=== PATIENT | male | born 1940 | race Caucasian/White ===

== ENCOUNTER 2023-05-08 05:17 | Inpatient (IN) | payer MEDICARE, OTHER, SELFPAY ==
[2023-05-08] VITALS (53 sets, daily range): BP systolic 69–137; BP diastolic 29–86; PULSE 2–125; BMI 20.8
--- NOTE | 2023-05-08 02:29 | ED.GENMED ---
History of Present Illness
General
Chief Complaint: Fall
Source: patient and ambulance crew
Exam Limitations: none
Time Seen by Provider: 05/08/23 02:26
Nursing documentation reviewed up to this point in time: agreed with
Travel History
Have you had any contact with someone who has COVID-19?: Unable to Answer
Do you have any symptoms of coronavirus? Fever > 100 degrees, chills, cough, shortness of breath, sore throat, loss of taste or smell, muscle aches, or headache?: Unable to Answer
History of Present Illness
History of Present Illness:
82 yo male presents the emergency department complaining of an unwitnessed fall, and family stating he has a bug. History of dementia. On eliquis.
Past History
Past History
ED Past Medical History: HTN, Hypercholesterolemia and Other (oa)
ED Past Surgical History: Orthopedic and Other (cataracts)
Social History
Tobacco: Non-smoker
Alcohol: None
Drug: None
Living: with family
Review of Systems
Review of Systems
Allergies reviewed?: Yes
All Other Systems: Not applicable
Constitutional: Reports no symptoms
EENT: Reports no symptoms
Respiratory: Reports cough and trouble breathing
Cardiac: Reports no symptoms
ABD/GI: Reports vomiting and diarrhea
: Reports no symptoms
Musculoskeletal: Reports no symptoms
Skin: Reports no symptoms
Neurological: Reports no symptoms
Endocrine: Reports no symptoms
Hematologic/Lymphatic: Reports no symptoms
Psychiatric: Reports no symptoms
Phy Exam
Physical Exam
Physical Exam:
Physical Exam
General: Ill-appearing, moderate distress
Neck: supple. no meningeal signs. normal posterior pharynx
Heart: s1/s2 tachycardia, no murmur. equal radial
pulses.
HEENT: Pupils equal round reactive to light, EOMI
Lungs: Moderate respiratory distress. Rhonchi bilaterally
Abdomen: normal bowel sounds. not tender. no CVAT
Neuro: alert and oriented to person. no focal neurological deficits cranial nerves II through XII intact
Skin: no rash
Psychiatric: Poorly kept. interactive and cooperative
Extremities: no edema. no calf tenderness. negative homans. good distal pulses
Course
Orders/Labs/Results
Orders:
Orders
05/08/23 02:11
Portable Chest Xray [CR Chest Portable - 1 View] Urgent
Comment:
Reason For Exam: sob
Reason Study Needs to be Portable: Patient Unstable
05/08/23 02:12
EKG [Electrocardiogram (*1)] Urgent
Reason for Study: Shortness of Breath
EKG- Treatment ONCE
05/08/23 02:17
Cardiac Monitoring- Treatment ONCE
O2 Therapy [RESP] Urgent
Titrate/Wean O2 to maintain O2 sat greater than (%): 93
Special Instructions: TO MAINTAIN CONTINUOUS O2 SATS > OR = 93%
05/08/23 02:28
CT Head W/o Iv Contrast Urgent
Comment:
Reason For Exam: fall, hit head
05/08/23 02:38
Complete Blood Count/With Diff Urgent
Comprehensive Metabolic Panel Urgent
Creatine Phosphokinase Urgent
Comment: ADD ON
Blood Culture Q30M
GRISELDA Source: Blood/Venous
Specimen Description:
Comment: FROM 2 SEPARATE SITES
Blood Culture Q30M
GRISELDA Source: Blood/Venous
Specimen Description:
Comment: FROM 2 SEPARATE SITES
05/08/23 02:39
Lactic Acid Q4H
Comment: ON ICE, CANCEL 2ND ORDER IF FIRST LACTIC ACID LEVEL <2
05/08/23 02:48
Bipap [RESP] Urgent
Patient to use own unit?: No
Inspiratory Pressure (cm H2O): 10
Expiratory Pressure (cm H2O): 5
05/08/23 03:03
Type+Screen Urgent
BBK Wristband Number:
05/08/23 03:13
Add On- LAB Urgent
Tests Added?: cpk
05/08/23 03:15
0.9% Sodium Chloride 1000 ml [Nss] 1,000 ml IV BOLUS
05/08/23 03:16
Cefepime HCl [Maxipime] 2,000 mg IV NOW STA
Vancomycin 1 Gram/200 ml [Vancocin] 1 gram in 200 ml IV NOW
05/08/23 04:42
Admit/Transfer Patient As Directed
Co-Sign Provider:
Level of Care: Inpatient admission
Assign to:: ICU
Physician / Group: [email or web address]
Diagnosis: sepsis, Fall, TME, Acute hypoxic RF
Reason for Hospitalization: Sepsis suspect PNA ? aspiration - pending UA
Acute hypoxic RF require BiPAP - POA daughter declined mechanical vent - thus DNI
Unwitnessed Fall 2/2 associated acute encephalaopathy due to sepsis and hypoaxia
Hyperglycemia due to acute metabolic stress
Expected length of stay greater than two midnights?: Yes
ELOS- Estimated Length of Stay in days: 5
I certify the patient meets the requirements for IP care: Yes
05/08/23 04:43
Code Status As Directed
Resuscitation Status: Limited DNR
Limited DNR: -No intubation
05/08/23 04:44
NT-proBNP Urgent
Procalcitonin Urgent
PCT Algorithmm Indication: Sepsis
05/08/23 05:22
COVID-19 Antigen Urgent
Source: Nasal Swab
Urine Culture Reflexed from UA [Urinalysis Reflex To Culture] Urgent
Date Specimen was Collected: 05/08/23
Time Specimen was Collected: 05:20
05/08/23 06:30
Lactic Acid Q4H
Comment: ON ICE, CANCEL 2ND ORDER IF FIRST LACTIC ACID LEVEL <2
Abnormal Lab Results
05/08/23 05/08/23 05/08/23
02:38 02:39 04:44
WBC 15.0 H 10^3/uL
(4.8-10.8)
RBC 4.26 L 10^6/uL
(4.70-6.10)
Hgb 11.9 L g/dL
(13.0-18.0)
Hct 37.3 L %
(39.0-52.0)
MCHC 31.9 L g/dL
(33.0-37.0)
RDW 16.8 H %
(11.5-14.5)
Abs Immat Gran (auto) 0.1 H 10^3/uL
(0-0.05)
Absolute Neuts (auto) 14.0 H 10^3/uL
(1.4-6.5)
Absolute Lymphs (auto) 0.6 L 10^3/uL
(1.2-3.4)
Neutrophils % 93.1 H %
(42.2-75.2)
Lymphocytes % 3.7 L %
(20.5-51.1)
Chloride 97 L mmol/L
(98-107)
BUN 26 H mg/dl
(9-20)
Glucose 225 H mg/dl
(70-99)
Lactic Acid 4.2 H* mmol/L
(0.7-2.0)
Alkaline Phosphatase 129 H U/L
(38-126)
Creatine Kinase 24 L U/L
(55-170)
Procalcitonin 1.21 H ng/ml
(0.0-0.25)
05/08/23 02:38
05/08/23 02:38
Vital Signs
Initial and Last Documented VS:
Initial Vital Signs
Pulse Ox
73
05/08/23 02:16
Last Documented Vital Signs
Temp Pulse Resp BP Pulse Ox
102.3 F H 103 34 98/64 91
05/08/23 02:41 05/08/23 05:45 05/08/23 05:45 05/08/23 05:30 05/08/23 05:45
MDM/Problems Addressed
Differential Diagnosis Includes:
Sepsis, pneumonia, respiratory failure
MDM/Problems Addressed:
82-year-old male with pneumonia, sepsis, respiratory failure. Patient also with fall. No signs of trauma. Discussed with patient's daughter, who states he does not wish to be mechanically ventilated.
Chronic conditions affecting care: COPD and Previous abdomnial surgery (Prior AAA repair)
Acute Exacerbation and/or Progression of Chronic Illness: COPD and Previous abdomnial surgery (Prior AAA repair)
*Radiology
Radiology exam reviewed: preliminary read by ED provider (Chest x-ray right so pneumonia) and radiology read reviewed (CT head no acute findings)
*Pulse Oximetry
Patient hypoxic: yes
*EKG
Interpreted by ED Provider?: Yes
EKG Intrepretation Date: 05/08/23
EKG Intrepretation Time: 02:18
Interpretation: abnormal
Comparison EKG: changes noted
Heart Rate: 134
Rate: tachycardiac
Rhythm: sinus tachycardia
Salley: normal axis
Interval: normal interval
Ischemia: non-specific ST changes
*Equipment Monitor Phototypesetting Interpretation
Rate: tachycardiac
Interpretation: abnormal
Heart Rate: 102
Rhythm: sinus tachycardia
*Critical Care Note
Total Time (30-74mins, 75-104mins- exclusive of procedures): 30
comment:
Critical care statement: A total of 30 minutes of critical care time was provided for this patient. This includes management of unstable vital signs, evaluation of the patient at bedside, reviewing the patient's pertinent medical records, discussion
with consultants, review of old EKGs and review of pertinent medical records. This time with separate from time utilized to perform the aforementioned documented procedures
Data Reviewed
Review of Other/Old Records Reveals: Labs
Patient Management
Social determinants of health affecting care: Living situation
Discussion with other providers: Hospitalist
Escalation/DeEscalation of care consider admission/obs:
Admit to ICU indicated
ED Attending Note
-
Portions of this chart may have been created with voice recognition software.� Occasional wrong word or��sound alike� substitutions may have occurred due to the inherent limitations of voice recognition software.
Discharge Plan
Departure
Patient Disposition: Admit
Date of Disposition: 05/08/23
Time of Disposition: 03:19
Admit to: ICU
Presentation/result/management discussed w/ accepting MD/DO: Hospitalist
Patient with high blood pressure during this ER visit?: No
Condition: Fair
Discharge Problem:
Pneumonia, Sepsis, Respiratory failure
Interventions
Interventions:
*Risk Screen - Suicide Last Done: 05/08/23 02:18
*General Assessment Last Done: 05/08/23 02:18
*Neglect/Abuse Screening Last Done: 05/08/23 02:18
ED- Fall Risk Assessment Last Done: 05/08/23 03:32
*ED COVID-19 Vaccine History Last Done: 05/08/23 02:18
ED-Musculoskeletal Assessment Last Done: 05/08/23 03:39
ED- Neurological Assessment Last Done: 05/08/23 03:32
ED-Skin Assessment Last Done: 05/08/23 03:32
[2023-05-08 02:53] LABS: % Basophils 0.3 % (0-2); % Eosinophils 0.1 % (0-6); % Immature Granulocytes 0.5 % (0-0.5); % Lymphocytes 3.7 % (20.5-51.1); % Monocytes 2.3 % (1.7-9.3); % Neutrophils 93.1 % (42.2-75.2); Absolute Basophils 0.1 10^3/uL (0-0.2); Absolute Immature Granulocytes 0.1 10^3/uL (0-0.05); Absolute Lymphocytes 0.6 10^3/uL (1.2-3.4); Absolute Monocytes 0.4 10^3/uL (0.1-0.6); Hematocrit 37.3 % (39.0-52.0); Hemoglobin 11.9 g/dL (13.0-18.0); Mean Corp Hgb Conc. 31.9 g/dL (33.0-37.0); Mean Corpuscular Hgb 27.9 pg (27.0-31.0); Mean Corpuscular Volume 87.6 fL (80.0-94.0); Mean Platelet Volume 9.2 fL (7.4-10.4); Nucleated Red Blood Cells % 0 % (-); Platelet Count 349 10^3/uL (130-400); Red Blood Cell Count 4.26 10^6/uL (4.70-6.10); Red Cell Dist. Width 16.8 % (11.5-14.5)
[2023-05-08 03:09] LABS: ALT (SGPT) 16 U/L (0-50); AST (SGOT) 25 U/L (17-59); Albumin 3.6 g/dl (3.5-5.0); Alkaline Phosphatase 129 U/L (38-126); Blood Urea Nitrogen 26 mg/dl (9-20); Calcium 8.7 mg/dl (8.4-10.2); Carbon Dioxide 30 mmol/L (22-30); Chloride 97 mmol/L (98-107); Glucose 225 mg/dl (70-99); Potassium 4.3 mmol/L (3.5-5.1); Sodium 138 mmol/L (135-145); Total Bilirubin 0.5 mg/dl (0.2-1.3); Total Protein 6.4 g/dl (6.3-8.2); eGFR > 60.00
[2023-05-08 03:10] LABS: Lactic Acid 4.2 mmol/L (0.7-2.0)
[2023-05-08] MEDS: NSS 1000 IV (03:15)
[2023-05-08 03:27] LABS: Creatine Phosphokinase 24 U/L (55-170)
[2023-05-08] MEDS: MAXIPIME 2000 MG IV ×2 (03:28→15:36)
[2023-05-08] MEDS: VANCOCIN 200 IV (03:43)
--- NOTE | 2023-05-08 04:35 | HPS.HSE ---
Family Physician
-
Family Physician: NOT KNOW UNKNOWN - PT DOES
Chief Complaint
-
unwitnessed Fall. Low POx per EMS
History of Present Illness
HPI from ER record due to dementia
82M from Home, lives with family HX Dementia, HTN pw unwitnessed Fall.
He was BIB EMS to by passing [facility] which he lives closer.
At ER Febrile, T max of 100, tachycardic, in acute Resp distress, mottled distal Leidy nad acute hypoxic RF requiring BiPAP support.
Per ER attd Daughter Susan Arias LATRELL, states he does not want mechanical ventilation
Medical History
Past Medical History
Past Medical History: Reports HTN, Hypercholesterolemia and Other (dementia )
Past Surgical History: Reports Orthopedic
Social History
Tobacco: Non-smoker
Alcohol: None
Drug: None
Living: With Family
Family History
Family History: Not pertinent
Allergies / Home Medications
Allergies reflects when Allergies were last updated in [employer].
Home Medications with original date entered in [employer]
Allergy/Medication List:
Allergies
Allergy/AdvReac Type Severity Reaction Status Date / Time
No Known Allergies Allergy Verified 01/16/23 08:40
Home Medications
lisinopril 10 mg tablet 10 mg PO DAILY 11/17/17
multivitamin 1 ea PO DAILY 11/17/17
aspirin 325 mg tablet,delayed release 325 mg PO DAILY 12/09/17
pantoprazole 40 mg tablet,delayed release 20 mg PO DAILY 02/13/21
Folic Acid 0.8 mg PO HS 04/03/21
Lupron: 1 dose IM .6MONTHS 04/03/21
Vitamin B12: 500 mcg PO DAILY 04/03/21
acetaminophen 325 mg tablet 650 mg PO Q4HPRN PRN mild pain or temp >/= 100.4 F 04/17/21
Review of Systems
-
Constitutional: Reports Fever
EENT: Reports No Symptoms
Respiratory: Reports See HPI and Trouble Breathing
Cardiac: Reports No Symptoms
Abdomen/GI: Reports No Symptoms
: Reports No Symptoms
Musculoskeletal: Reports No Symptoms
Skin: Reports No Symptoms
Neurological: Reports No Symptoms
Endocrine: Reports No Symptoms
Hematologic/Lymphatic: Reports No Symptoms
Psych: Reports No Symptoms
Physical Exam
Vital Signs
Vital Signs
Temp Pulse Resp BP Pulse Ox
102.3 F H 103 25 137/69 92
05/08/23 02:41 05/08/23 04:00 05/08/23 04:00 05/08/23 03:30 05/08/23 04:00
Physical Exam
General: Appears in Distress
HEENT: NormoCephalic, Anicteric and Other (Neck is supple )
Respiratory: Rhonchi (diffuse b/l )
Cardiac: S1/S2 and Regular Rhythm
Breast: Deferred by me
GI: Soft, Non Tender, Non Distended and Normal Bowel Sounds
Rectal: Brown (HoB POs per ER attd)
Genito-urinary: Deferred by me
Skin: No Rash
Psych: Other (interactive , cooporative )
Laboratory Results
-
05/08/23 02:38
05/08/23 02:38
Laboratory Results
Lactic Acid 4.2 mmol/L (0.7-2.0) H* 05/08/23 02:39
Total Bilirubin 0.5 mg/dl (0.2-1.3) 05/08/23 02:38
AST 25 U/L (17-59) 05/08/23 02:38
ALT 16 U/L (0-50) 05/08/23 02:38
Alkaline Phosphatase 129 U/L (38-126) H 05/08/23 02:38
Data Reviewed
-
CT Scan: Other (pending HCT report )
Lab Data: Labs Reviewed by me
Old Records: Reviewed
Impression/Plan
-
Data
WCC 15
Hgb 11.9 - baseline is 8s -9s during 2021
Cl 97
BUN 26
Nl Cr
Nl eGFR
BG 225
Pending LA
AKP 130
CK 24
PCT pending
pro BNP pending
Pending Covid Ag
UA reflex to UCx ordered
BCxs sent
CXR report pending - Rt sided PNA by my view +/_ CHF
HCT report pending
04/10/21 ECHO
LVEF 55-60%
moderate pulmonary hypertension
ASSESSMENT & PLAN
Pending Rx reconciliation
Sepsis suspect PNA ? aspiration - pending UA
Acute hypoxic RF require BiPAP - POA daughter declined mechanical vent - thus DNI
Unwitnessed Fall 2/2 associated acute encephalopathy due to sepsis and hypoxia - He becomes more alert and responsive on BiPAP during the ER course
Hyperglycemia due to acute metabolic stress
Leucocytosis
- f/u HCT
- check Covid Ag
- check PCT and pro BNP
- UA, UCx, BCx
- Septic IVF follow by LR IVF
- Empiric IV vancomycin and Cefepine
- cont NIV with BiPAP
- DNI per POA daughter
- Pul consult
HoB POS brown stool - he checked HoB coz daughter reports some stomach bugs going on !
On Eliquis per ER attd but I did not see on the Rx list which has not yet reconciled
Current Hgb seems from hemoconcentrated Blood
- NPO and IVF
- Held Eliquis
- IV PPI daily
- T & S
- Trend H & H
- GI consult
Essential HTN
- Held Lisinopril
DVT Px: SCD
DNI per POA daughter
ICU
[2023-05-08 05:14] LABS: NT-proBNP 771 pg/ml
[2023-05-08 05:20] LABS: Procalcitonin 1.21 ng/ml (0.0-0.25)
[2023-05-08 05:44] LABS: Urine Albumin 1+ (Neg - Trace); Urine Bilirubin 1+ (Negative); Urine Character Slightly Cloudy (Clear); Urine Color Yellow; Urine Glucose Negative (Negative); Urine Ketone Trace (Negative); Urine Leukocyte Trace (Negative); Urine Nitrite Negative (Negative); Urine Occult Blood 4+ (Negative); Urine Urobilinogen Negative (Neg - 1+)
[2023-05-08 05:46] LABS: COVID-19 Antigen Negative (Negative)
[2023-05-08 05:50] LABS: Urine Bacteria Moderate (Negative); Urine Red Blood Cell >100 /HPF (0-2)
[2023-05-08 06:00] LABS: Urine Calcium Oxalate Crystals Seen
[2023-05-08] MEDS: LR 1000 IV ×2 (07:09→20:13)
[2023-05-08] MEDS: OFIRMEV 100 IV ×2 (07:11→17:33)
[2023-05-08] MEDS: VANCOCIN HCL 500 MG 100 IV (07:26)
[2023-05-08 08:22] LABS: Hematocrit 33.4 % (39.0-52.0); Hemoglobin 10.5 g/dL (13.0-18.0)
[2023-05-08] MEDS: PROTONIX IV 40 MG IV (08:28)
[2023-05-08] MEDS: NSS (PRESERVATIVE FREE) 10 ML IV (08:29)
[2023-05-08] MEDS: FLUSH (NSS) 1 FLUSH IV ×2 (08:29→15:37)
[2023-05-08 08:31] LABS: INR 1.54; PT 18.3 Sec (11.4-14.6)
[2023-05-08 08:32] LABS: APTT 31.6 Sec (23.4-35.0)
[2023-05-08 08:35] LABS: Lactic Acid 2.7 mmol/L (0.7-2.0)
--- NOTE | 2023-05-08 09:30 | PTCARENOTE ---
Rec'd pt at 0800 resting in bed. Is awake but drowsy. Follows commands and overall is oriented and appropriate. Denies pain. HURD weakly. Skin is pale wm except LE which are cool and knees are mottled. Pt with multiple bruised areas on arm and on
Upper R thigh has purplish ecchymosis. L upper arm with 2 skin tears totaling 5 cm x 2 cm. Cleansed with saline and redressed with silicone border foam. Temp was 102.6 and finished Ofermiv at 0730. Temp currently 101.6. BS are coarse and decreased.
Pt currently on Bipap 18/8+ 15L with sats of 93%. Coughing moist cough that is productive enough to be suctioned with a yankeur. Monitor ST with PAC's. + pulses. PT and DP pulses iwth the doppler. No edema. VS as documented. Pt has overall been
hypotensive in the 70-80's syst[address] Dr[address] Bello in and aware-will order Levophed. Abd is soft with hypoactive BS. No stool noted. #[address]-no urine and denies need to void. IV LR infusing at 80 mls/hr. Pt turned and repositioned. Mouth
care given. Family and pt updated on plan of care. Call suárez in reach. Labs sent as ordered.
[2023-05-08] MEDS: LEVOPHED 250 IV ×3 (09:35→20:13)
[2023-05-08] MEDS: LR 500 IV (09:40)
--- NOTE | 2023-05-08 09:40 | PTCARENOTE ---
LR 500 ml IV bolus hung. Levophed Started via R AC IV site at 5 mcg with goal of MAP >65
--- NOTE | 2023-05-08 10:09 | CON.INTV ---
Consultation
Consultation Request
Date/Time Consultation Requested: 05/08/2023
Date/Time Consultation Performed: 05/08/2023
Requesting Provider: Dr. Peterson
Performing Provider: Dr. Ronaldo Bello
Reason for Consultation: Acute hypoxemic respiratory failure-septic shock
Medical History
-
History of Present Illness:
82-year-old man who has history of dementia, unable to provide history, has history of hypertension brought into the emergency room for an unwitnessed fall. Brought in by EMS to [facility]. He lives closer to [facility].
Patient was found to be febrile, tachycardic, in respiratory distress, with multiple lower extremities, hypoxemic with increased work of breathing. Immediately placed on BiPAP for work of breathing.
Chest x-ray was consistent with possible bilateral infiltrates.
He was placed on antibiotics.
Upon my evaluation in the critical care unit he remains on BiPAP, tachypneic. Not able to provide any history. He does state that probably he is feeling a little bit better from the breathing perspective.
Hypotensive at 77/44. Denies any abdominal pain nausea or vomiting. He is coughing intermittently.
He is protecting airway.
Patient is a DNR, family at the bedside and they state that they would not want any heroic interventions.
Past Medical History
Past Medical History: Other ( see assessment and plan section)
Social History
Tobacco: Non-smoker
Alcohol: None
Drug: None
Living: With Family
Employment: Retired
Family History
Family History: Unable to Obtain
Allergies / Home Medications
Allergies
Allergy/AdvReac Type Severity Reaction Status Date / Time
No Known Allergies Allergy Verified 01/16/23 08:40
Home Medications
Medication Instructions Recorded Confirmed Last Taken Type
lisinopril 10 mg tablet 10 mg PO DAILY 11/17/17 04/16/21 04/16/21 05:00 History
multivitamin 1 ea PO DAILY 11/17/17 04/16/2122 08:00 History
aspirin 325 mg tablet,delayed 325 mg PO DAILY 12/09/17 04/16/21 04/16/21 05:00 Rx
release
pantoprazole 40 mg tablet,delayed 20 mg PO DAILY 02/13/21 04/16/21 04/15/21 08:00 History
release
Folic Acid 0.8 mg PO HS 04/03/21 04/16/21 04/15/21 08:00 History
Lupron: 1 dose IM .6MONTHS 04/03/21 04/03/21 03/27/21 History
Vitamin B12: 500 mcg PO DAILY 04/03/21 04/16/21 04/15/21 08:00 History
acetaminophen 325 mg tablet 650 mg PO Q4HPRN PRN mild pain or 04/17/21 Unknown Rx
temp >/= 100.4 F
Review of Systems
-
Unable to Obtain full review of systems at this time due to: Dementia and Acuity
Vitals / Labs / Diagnostic Testing
Vital Signs
Temp Pulse Resp BP Pulse Ox
102.5 F H 123 24 76/50 92
05/08/23 07:59 05/08/23 09:30 05/08/23 09:30 05/08/23 09:30 05/08/23 09:30
Lab Data
05/08/23 02:38
Laboratory Results
05/08/23
08:06
PT 18.3 H
INR 1.54
APTT 31.6
Diagnostic Testing:
Physical Exam
-
HEENT: Normocephalic
Cardiovascular: S1/S2
Respiratory: Rales and Accessory Resp Muscle Use (Mild on BiPAP)
GI: Soft and Non Distended
Neurology: Awake and Other (Follows simple commands, unable to provide history. Moving 4 extremities.)
Skin: Other (Pale)
General: Respiratory Distress (Mild to moderate)
Assessment
-
82-year-old man with history of dementia, hypertension, who is here for increased work of breathing, hypotension, bilateral infiltrates on chest x-ray. Admitted after sustaining a fall. Due to increased work of breathing started on BiPAP,
hypotensive. Critical care was consulted for evaluation and treatment.
-
Acute hypoxemic respiratory failure due to pneumonia
Requiring noninvasive mechanical ventilation
Bilateral pneumonia: Cannot rule out aspiration
Chest x-ray 05/08/2023: Left lower lobe infiltrate. To my view right lower lobe perihilar infiltrate. Multiple sclerotic bone lesions.
Septic shock
Lactic acidosis up to 4.2
Hyperglycemia
? Dark stools-cannot rule out GI bleed.
Anemia, unclear chronicity.
Status post fall on admission: CT head negative. Moderate diffuse cortical and cerebellar atrophy.
Conditions present prior admission:
Hypertension
Dementia
Lives with family
Hypercholesterolemia
Lupron is listed as a medication: Likely has metastatic prostate cancer given bone metastatic disease on x-rays.
-
Assessment and plan:
Patient is critically ill, on BiPAP with increased work of breathing.
Now also hypotensive despite IV fluid resuscitation. Febrile
-
Acute respiratory failure requiring noninvasive mechanical ventilation
Continue BiPAP 18/8
Work of breathing improving
Pulse oximetry 93%
Again discussed with family, no intubation or CPR will be offered at this point.
No heroic interventions.
-
If there is increased work of breathing morphine will be given.
-
Septic shock: Likely due to pneumonia.
Status post adequate fluid resuscitation.
Agree with broad-spectrum antibiotics: Cefepime/vancomycin.
Will obtain a sputum culture if possible
Will give additional fluid bolus of LR 500 mL
Follow lactic acid
Follow renal function
Start Levophed to maintain mean arterial blood pressure 65 mmHg.
Patient would like to limit procedures if possible. If there is escalating pressor doses, central line access will be needed.
-
N.p.o.
Head of the bed elevation
-
Follow H&H
Continue PPI IV for now
Monitor for GI bleed
-
DVT prophylaxis with SCDs for now until GI bleed is ruled out.
-
Dr. Bello discussed with family at the bedside 05/08/2023: Again, DNR confirmed. No CPR or intubation. No heroic interventions. No extensive procedures.
If patient worsens then family okay to with keeping comfortable.
-
Critical care statement: A total of 40minutes of critical care time was provided for this patient today. This includes management of unstable vital signs, evaluation of the patient at bedside, reviewing the patient's pertinent medical records
including ventilator settings, arterial blood gases, radiographs, microbiology, laboratory evaluations and discussion with primary team, critical care nursing, and respiratory therapy.
--- NOTE | 2023-05-08 10:55 | CON.GI ---
Addendum entered and electronically signed by Loyd Rosenbaum MD 05/08/23 12:55:
I saw and examined the patient.
The STEAM FITTER SUPERVISOR or PA's note was reviewed and I agree with the note.
Comment: 82yo male admitted with fever SOB, PNA, sepsis. Stool on admission was brown heme positive. Hgb 11.9, then 10.5. Denies GI c/o, denies NSAIDs.
REC:
No current signs of active GI bleeding
Follow Hgb in AM. Can d/c q6 h/h
No plans for endoscopic procedures at this time
Original Note:
Consultation
-
Date/Time Consultation Requested: 05/08/23 0639
Date/Time Consultation Performed: 05/08/23 1030
Requesting Provider: Dr. Peterson
Performing Provider: Dr. Rosenbaum/REGAN Mart
Reason for Consultation: OB pos stool
Medical History
Chief Complaint / HPI
Chief Complaint: Fall
History of Present Illness:
82-year-old male with past medical history of hypertension, hyperlipidemia, arthritis and dementia presents to the hospital with an unwitnessed fall. While in the ER he was found to have a fever of 102.5 he was tachycardic, respiratory distress
with mottled lower extremities, BP of 77/44 and hypoxic requiring BiPAP support. He was found to have pneumonia and septic shock. We are asked to evaluate for OB positive, brown stool per ER report. The patient was seen at bedside with his
family. Currently he is on BiPAP. He denies any true GI symptoms. He gives limited history. There is been no signs of active bleeding since he is arrived. He has no known NSAID use that we are aware of, although per his MAR record from home he
may be on aspirin 325 mg daily. Discussion with nursing he has not had a bowel movement since he has been here. Hemoglobin is currently 10.5 down from 11.9 although on review of prior records patient's baseline hemoglobin is in the 8-9 range.
Past Medical History
Past Medical History: HTN, Hypercholesterolemia and Other (Osteoarthritis dementia)
Past Surgical History: Other (Cataracts)
Social History
Tobacco: Non-Smoker
Alcohol: None
Drug: None
Family History
Family History: Other (No family history of colon cancer)
Allergies / Home Medications
Allergy/AdvReac Type Severity Reaction Status Date / Time
No Known Allergies Allergy Verified 01/16/23 08:40
Medication Instructions Recorded
lisinopril 10 mg tablet 10 mg PO DAILY 11/17/17
multivitamin 1 ea PO DAILY 11/17/17
aspirin 325 mg tablet,delayed 325 mg PO DAILY 12/09/17
release
pantoprazole 40 mg tablet,delayed 20 mg PO DAILY 02/13/21
release
Folic Acid 0.8 mg PO HS 04/03/21
Lupron: 1 dose IM .6MONTHS 04/03/21
Vitamin B12: 500 mcg PO DAILY 04/03/21
acetaminophen 325 mg tablet 650 mg PO Q4HPRN PRN mild pain or 04/17/21
temp >/= 100.4 F
Review of Systems
-
Unable to obtain full review of systems at this time due to: Dementia
Vital Signs
Temp Pulse Resp BP Pulse Ox
102.5 F H 123 24 76/50 92
05/08/23 07:59 05/08/23 09:30 05/08/23 09:30 05/08/23 09:30 05/08/23 09:30
Physical Exam
Exam
General: Other (Appears ill, on BiPAP)
HEENT: Anicteric
Respiratory: Clear (Limited anterior exam)
Cardiac: Regular Rhythm (Tachy)
GI: Soft, Non Tender, Non Distended and Normal Bowel Sounds
Musculoskeletal: No Edema
Skin: Warm and Dry
Neuro: Awake and Alert
Psych: Calm
Results
WBC 15.0 10^3/uL (4.8-10.8) H 05/08/23 02:38
Hgb Cancelled 05/08/23 18:39
Hct Cancelled 05/08/23 18:39
MCV 87.6 fL (80.0-94.0) 05/08/23 02:38
Plt Count 349 10^3/uL (130-400) 05/08/23 02:38
Absolute Neuts (auto) 14.0 10^3/uL (1.4-6.5) H 05/08/23 02:38
PT 18.3 Sec (11.4-14.6) H 05/08/23 08:06
INR 1.54 05/08/23 08:06
APTT 31.6 Sec (23.4-35.0) 05/08/23 08:06
Sodium 138 mmol/L (135-145) 05/08/23 02:38
Potassium 4.3 mmol/L (3.5-5.1) 05/08/23 02:38
Chloride 97 mmol/L (98-107) L 05/08/23 02:38
Carbon Dioxide 30 mmol/L (22-30) 05/08/23 02:38
BUN 26 mg/dl (9-20) H 05/08/23 02:38
Creatinine 0.8 mg/dL (0.7-1.3) 05/08/23 02:38
Calcium 8.7 mg/dl (8.4-10.2) 05/08/23 02:38
Total Bilirubin 0.5 mg/dl (0.2-1.3) 05/08/23 02:38
AST 25 U/L (17-59) 05/08/23 02:38
ALT 16 U/L (0-50) 05/08/23 02:38
Alkaline Phosphatase 129 U/L (38-126) H 05/08/23 02:38
Diagnostic Image Results:
Head CT:
There are no focal or acute intracranial abnormalities.
There is moderate diffuse cortical and cerebellar atrophy
CXR:
1).There are extensive patchy sclerotic bone lesions throughout the regional osseous system, new compared with the prior study and worrisome for blastic osseous metastasis. Bone scan and correlation with PSA levels may be useful for further
evaluation
2).There is mild linear interstitial airspace disease at the left lung base suggesting interstitial pneumonia
Prior GI Procedures:
EGD: none
Colonoscopy: 12/05/2015 � - Diverticulosis in the sigmoid colon and in the
�� � � � � � � � � � descending colon.
Assessment / Plan
-
82-year-old male with past medical history of hypertension, hyperlipidemia, arthritis and dementia presents to the hospital with an unwitnessed fall. While in the ER he was found to have a fever of 102.5 he was tachycardic, respiratory distress
with mottled lower extremities, BP of 77/44 and hypoxic requiring BiPAP support. He was found to have pneumonia and septic shock. We are asked to evaluate for OB positive, brown stool per ER report. The patient was seen at bedside with his
family. Currently he is on BiPAP. He denies any true GI symptoms. He gives limited history. There is been no signs of active bleeding since he is arrived. He has no known NSAID use that we are aware of, although per his MAR record from home he
may be on aspirin 325 mg daily. Discussion with nursing he has not had a bowel movement since he has been here. Hemoglobin is currently 10.5 down from 11.9 although on review of prior records patient's baseline hemoglobin is in the 8-9 range.
Impression:
OB positive Brown stool
-- With stable hemoglobin and a severely ill man currently with
Acute hypoxemic respiratory failure due to pneumonia requiring BiPAP
Septic shock
Dementia
Plan:
-Discussed with family/patient
-Will stop Q6 H&H's
-Check CBC in a.m.
-No endoscopic procedures planned
-Continue PPI
-Treat above issues as per pulmonary crit care/internal medicine
-
-
Thank you for consultation and allowing me to participate in the patient's care. Please call the incident response consultant GI physician during the after hours with any questions or concerns.
--- NOTE | 2023-05-08 11:30 | PTCARENOTE ---
Dozing when not disturbed. Titrating Levophed as needed to keep MAP >65. Family at the bedside. Continues to cough with as little as oral swabs-keeping pt NPO
--- NOTE | 2023-05-08 12:30 | PTCARENOTE ---
Mostly sleeps when not disturbed. Other than his mouth feeling dry- denies pain. Remains on Bipap 18/8 + 15L with sats of 96%. BS are coarse and able to cough up- but needs oral suctioning for thick whiitish secretions. Monitor ST with freq PAC's.
Still with some LE mottling but less so. Pt still has not voided. Bladder scanned for 58 mls. Levophed currently at 12 mcg to try to maintain MAP's >65. Labs sent. Repositioned. Family at bedside. Call suárez in reach.
[2023-05-08 12:49] LABS: Lactic Acid 2.6 mmol/L (0.7-2.0)
[2023-05-08 12:50] LABS: Blood Urea Nitrogen 29 mg/dl (9-20); Calcium 7.5 mg/dl (8.4-10.2); Carbon Dioxide 24 mmol/L (22-30); Chloride 104 mmol/L (98-107); Estimated Creatinine Clearance 39 ml/min; Glucose 144 mg/dl (70-99); Potassium 4.4 mmol/L (3.5-5.1); Sodium 134 mmol/L (135-145); eGFR > 60.00
--- NOTE | 2023-05-08 13:43 | W.PN.HOSP.TC ---
Today's Communication/Plan
-
see outlined plan
Assessment / Plan
Assessment / Plan
Assessment:
Acute hypoxemic respiratory failure due to pneumonia
Bilateral PNA
- possible aspiration etiology; keep NPO And head of bed elevated. Formal speech eval when able.
- continue Cefepime, day 1. Add Flagyl. Follow cultures. MRSA neg so Vanc stopped
- on BiPAP
- provide morphine if work of breathing is increased
Septic shock
Lactic acidosis
- monitor lactates, pressors as needed
Dark stools - cleared by GI no evidence of bleeding
Chronic anemia
Fall on admission - CT head neg
Essential HTN
Dementia unknown subtype
Hypercholesterolemia
Metastatic prostate cancer on Lupron
DVT ppx: SCDs
Code: DNR no heroic measures
Total Critical Care Time 34 minutes. I was immediately available to the patient and staff. I personally examined, reviewed labs, diagnostic images/reports, interpretations, treatment plans, discussed patient care with other providers and family
or caregivers (if patient is unable to make decisions), entered orders as appropriate and documented the medical record.
Anticipated Discharge: > 48 hours
Subjective/Interval History
-
remains on BiPAP, less labored breathing
Objective Data
-
Labs:
Laboratory Results
05/08/23 05/08/23 05/08/23
02:38 08:06 12:29
WBC 15.0 H
Hgb 11.9 L 10.5 L
Hct 37.3 L 33.4 L
Plt Count 349
PT 18.3 H
INR 1.54
APTT 31.6
Sodium 138 134 L
Potassium 4.3 4.4
Chloride 97 L 104
Carbon Dioxide 30 24
BUN 26 H 29 H
Creatinine 0.8 1.2
Glucose 225 H 144 H
Calcium 8.7 7.5 L
Total Bilirubin 0.5
AST 25
ALT 16
Alkaline Phosphatase 129 H
05/08/23 05/08/23
12:39 18:39
WBC
Hgb Cancelled Cancelled
Hct Cancelled Cancelled
Plt Count
PT
INR
APTT
Sodium
Potassium
Chloride
Carbon Dioxide
BUN
Creatinine
Glucose
Calcium
Total Bilirubin
AST
ALT
Alkaline Phosphatase
Vital Signs:
Vital Signs
Temp Pulse Resp BP Pulse Ox
100.0 F 109 27 107/50 96
05/08/23 12:13 05/08/23 12:45 05/08/23 12:30 05/08/23 12:30 05/08/23 12:15
I&O
05/07/23 05/08/23 05/09/23
06:59 06:59 06:59
Intake Total 1105.0 / 1105.0
Balance 1105.0 / 1105.0
Physical Exam
-
HEENT: Normocephalic and Atraumatic
Respiratory: Rales, Decreased Breath Sounds and Other (BiPAP)
Cardiac: Regular Rhythm and S1/S2
GI: Soft and Nondistended
Musculoskeletal: No Edema
Neuro: Awake
Psych: Calm
Data Reviewed
-
Critical Care Time (in minutes): 34
Labs: Labs Reviewed by me
--- NOTE | 2023-05-08 14:30 | PTCARENOTE ---
Pt dozing off and on all day but easily awakens. Asking for coffee. Informed pt and family that for now will keep him NPO as even with just the few drips of water from the water swabs he tends to cough and needs to be suctioned. Remains on the Bipap
18/8 + 15l with sats of 96%. VS as documented. Currently on Levophed at 12 mcg
[2023-05-08] MEDS: STERILE WATER FOR INJECTION 10 ML IV (15:37)
--- NOTE | 2023-05-08 16:30 | PTCARENOTE ---
Dozing intermittently but does easily awaken. No c/o pain or shortness of breath. Temp starting to go back up-was 100.8 now 101.1 rectal. Remains on Bipap 18/8 + 12 L with sats of 95%. Wants frequent mouth swabs. Monitor Difficult to tell if pt is
in ST with very frequent PAC's or AFib- ECG done and reading as ST with PAC's. Rates 118-130. Had a minimal bloody smear at rectum when skin care given. Pt was able to void- voided 150 mls of yellow urine. Levophed remains at 12 mcg-45 ml/hr. LR at
80 ml/hr. Repositioned. Mouth care given.
[2023-05-08 17:13] LABS: Lactic Acid 2.6 mmol/L (0.7-2.0)
--- NOTE | 2023-05-08 17:35 | PTCARENOTE ---
Temp 101.3 Ofkristen johnson.
--- NOTE | 2023-05-08 18:50 | PTCARENOTE ---
IV team inserting PICC. No other changes in assessment
--- NOTE | 2023-05-08 20:00 | PTCARENOTE ---
bowstring maker, pt denies pain, ST w/PACs HR low 100s-130s, new R PICC placed at change of shift verified by CXR, Levo/IVF gtts tubing changed and switched to PICC- infusing per work list. Sat 94% on continuous Bipap. mouth care done. #25 condom cath
leaking, incontinent mod amt yellow urine, skin care, new CC placed, CHG bath, POC discussed, call suárez with patient.
[2023-05-08 20:36] LABS: Lactic Acid 1.7 mmol/L (0.7-2.0)
[2023-05-09] VITALS (42 sets, daily range): BP systolic 81–167; BP diastolic 46–108; PULSE 2–142; BMI 22.1
[2023-05-09] MEDS: ATIVAN 0.25 MG IV (00:37)
[2023-05-09] MEDS: NSS (PRESERVATIVE FREE) 0.125 ML IV (00:38)
--- NOTE | 2023-05-09 00:40 | PTCARENOTE ---
pt HR 140-160s at 0030, pt removing bipap mask, agitated, 0.25mg IV ativan per BDoughertyNP, HR remains elevated despite pt more calm/restful, EKG done- reading SR pacs w RBBB when HR 142, reading CHARLEEN when HR more elevated at 154 -minutes apart.
BDoughertyNP aware- no new orders. am labs sent.
[2023-05-09] MEDS: LEVOPHED 250 IV ×2 (01:00→06:36)
[2023-05-09] MEDS: MAXIPIME 2000 MG IV ×2 (01:05→14:57)
[2023-05-09] MEDS: STERILE WATER FOR INJECTION 10 ML IV ×2 (01:05→14:57)
[2023-05-09 01:33] LABS: Hematocrit 26.3 % (39.0-52.0); Hemoglobin 8.5 g/dL (13.0-18.0); Mean Corp Hgb Conc. 32.3 g/dL (33.0-37.0); Mean Corpuscular Hgb 27.7 pg (27.0-31.0); Mean Corpuscular Volume 85.7 fL (80.0-94.0); Mean Platelet Volume 8.9 fL (7.4-10.4); Platelet Count 232 10^3/uL (130-400); Red Blood Cell Count 3.07 10^6/uL (4.70-6.10); Red Cell Dist. Width 16.8 % (11.5-14.5); White Blood Cell Count 13.6 10^3/uL (4.8-10.8)
[2023-05-09 01:53] LABS: ALT (SGPT) 14 U/L (0-50); AST (SGOT) 25 U/L (17-59); Albumin 2.2 g/dl (3.5-5.0); Alkaline Phosphatase 84 U/L (38-126); Blood Urea Nitrogen 31 mg/dl (9-20); Calcium 7.1 mg/dl (8.4-10.2); Carbon Dioxide 25 mmol/L (22-30); Chloride 103 mmol/L (98-107); Estimated Creatinine Clearance 66 ml/min; Glucose 129 mg/dl (70-99); Magnesium 1.7 mg/dl (1.6-2.3); Potassium 3.5 mmol/L (3.5-5.1); Sodium 132 mmol/L (135-145); Total Bilirubin 0.6 mg/dl (0.2-1.3); Total Protein 4.7 g/dl (6.3-8.2); eGFR > 60.00
[2023-05-09] MEDS: KCL 100 IV (03:18)
[2023-05-09] MEDS: MAGNESIUM SULFATE 100 IV (03:19)
[2023-05-09] MEDS: OFIRMEV 100 IV ×2 (03:37→15:52)
--- NOTE | 2023-05-09 03:41 | PTCARENOTE ---
HR continues to be 130-160, no new orders. pt temp 101.2 - prn ofirmev given.
[2023-05-09] MEDS: CALCIUM GLUCONATE 130 MG IV (04:49)
[2023-05-09] MEDS: FLUSH (NSS) 1 FLUSH IV ×2 (08:12→13:10)
[2023-05-09] MEDS: NSS (PRESERVATIVE FREE) 10 ML IV (08:12)
[2023-05-09] MEDS: PROTONIX IV 40 MG IV (08:12)
--- NOTE | 2023-05-09 09:00 | PTCARENOTE ---
Rec'd pt at 0800 dozing. Awkens easily to verbal stimuli and while at times forgetful overall is oriented. Was worried about his house and wanting something to drink. Reassurance and explanations given. Speech with Bipap mask off is
slurred/garbled-overall difficult to understand but pt does not have his teeth in. Denies pain. HURD. Skin is pale pink and warm- temp 99.4 via Rectal probe. Foam dressing intact L upper arm. Lower legs remain sl cool and sl mottled at the knees.
Respirs remain shallow and tachypnic. in the 25-35 range. Rec'd pt initially on Bipap but pt kept gesturing that he wanted the mask off- taken off at 0800 and pt placed on 10L midflow with sats of 96%. BS are coarse and decreased throughout.
Coughing a moist prod cough with suctioning for thick whitish/pale yellow secretions. Even with water swabs pt tends to cough and need suctioning. Will consult speech therapy. Monitor Stach with PAC's mixed with what looks like AFib. BB config.
Rates anywhere from 120's-160's. VS as documented. Will wean IV Levophed as BP permits Currently at 8 mcg. + pulses. PT and DP pulses with the doppler. No edema. Abd is round and soft with + BS, stool. #[address]- pt voiding
radha/yellow urine. IV Levophed and LR infusing via R arm DL picc. Capped int dc'd from R arm. Capped int intact LAC. Sites wnl. Turned and repositioned. CHG bath given. Plan of care reviewed with pt. Call Kosta in reach.
--- NOTE | 2023-05-09 10:00 | PTCARENOTE ---
Turned and repositioned. Skin care given. Oropharyngeally suctioned for whitish to thick yellow secretions. HR will jump up to the 160's overall appears more afib.
[2023-05-09] MEDS: LR 1000 IV ×2 (10:15→22:00)
--- NOTE | 2023-05-09 10:54 | W.PN.INTV ---
Today's Communication / Plan
Recommendations
Continue antibiotics
BiPAP as needed
Wean off vasopressors as able
Follow heart rate, hold off on any beta-blockers or calcium channel blockers. EKG appears sinus with PACs.
Continue maintenance IV fluids
If there is increased work of breathing will use low-dose morphine
Follow cultures
Follow H&H
Assessment
-
82-year-old man with history of dementia, hypertension, who is here for increased work of breathing, hypotension, bilateral infiltrates on chest x-ray. Admitted after sustaining a fall. Due to increased work of breathing started on BiPAP,
hypotensive. Critical care was consulted for evaluation and treatment.
-
Acute hypoxemic respiratory failure due to pneumonia
Requiring noninvasive mechanical ventilation
Bilateral pneumonia: Cannot rule out aspiration
Chest x-ray 05/08/2023: Left lower lobe infiltrate. To my view right lower lobe perihilar infiltrate. Multiple sclerotic bone lesions.
Septic shock
Lactic acidosis up to 4.2
Hyperglycemia
? Dark stools-cannot rule out GI bleed.
Anemia, unclear chronicity.
Status post fall on admission: CT head negative. Moderate diffuse cortical and cerebellar atrophy.
Conditions present prior admission:
Hypertension
Dementia
Lives with family
Hypercholesterolemia
Lupron is listed as a medication: Likely has metastatic prostate cancer given bone metastatic disease on x-rays.
-
Assessment and plan:
Patient is critically ill, on BiPAP with increased work of breathing.
Now also hypotensive despite IV fluid resuscitation. Febrile
-
Acute respiratory failure requiring noninvasive mechanical ventilation
Continue BiPAP 09/10, will continue as needed.
Pulse ox is 97%-continue to wean down oxygen. Currently on nasal cannula 6 L per
Work of breathing improving, strong cough on demand.
Patient is DNR
No heroic interventions.
-
If there is increased work of breathing morphine will be given.
-
Sinus tachycardia: Denies chest pain. Heart rate up to 140s
proBNP on admission was in the 700s. No evidence for volume overload.
EKG 05/09/2023: Reviewed,SINUS RHYTHM WITH PREMATURE ATRIAL COMPLEXES
RIGHT BUNDLE BRANCH BLOCK
Hopefully we can wean off Levophed first before giving any beta-blockers.
Blood pressure 140/55.
-
Septic shock: Likely due to pneumonia. Improved Levophed requirements down to 6 mics per minute.
Status post adequate fluid resuscitation.
Agree with broad-spectrum antibiotics: Cefepime
Vancomycin discontinued-MRSA screening negative.
Will obtain a sputum culture if possible-unable to produce
Continue maintenance IV fluids with LR at 80 cc an hour. Patient is NPO.
Lactic acid has cleared
Renal function is normal
Continue Levophed to maintain mean arterial blood pressure 65 mmHg.
PICC line in place
-
Family would like to limit any other procedures if possible.
-
N.p.o.
speech evaluation today, he is following commands. Coughing on demand. Clearing secretions.
He is suctioning himself.
Head of the bed elevation
-
Anemia
Follow H&H
No evidence for acute GI bleed.
GI has no plans for endoscopy.
Transfuse as needed.
-
DVT prophylaxis SCDs, given low hemoglobin today, holding pharmacological DVT prophylaxis.
-
Dr. Bello discussed with family at the bedside 05/08/2023 and 05/09/2023: Again, DNR confirmed. No CPR or intubation. No heroic interventions. No extensive procedures.
If patient worsens then family okay to with keeping comfortable.
05/09/2023: Clinically improved but still critically ill.
-
Critical care statement: A total of 31 minutes of critical care time was provided for this patient today. This includes management of unstable vital signs, evaluation of the patient at bedside, reviewing the patient's pertinent medical records
including ventilator settings, arterial blood gases, radiographs, microbiology, laboratory evaluations and discussion with primary team, critical care nursing, and respiratory therapy.
Subjective Dataa
Subjective Data
Date of Service:
Date of Service: May 09, 2023
Chief Complaint: Audio Specialist Follow Up (Septic shock/acute respiratory failure requiring noninvasive mechanical ventilation)
Subjective:
Remain on BiPAP overnight
Intermittently tachycardic
Remains on moderate doses of Levophed
Denies any abdominal pain nausea or vomiting.
Review of Systems
General: Other (Difficult to obtain due to acuity and dementia)
Objective Data
Data Reviewed
Vital Signs / I&O / Oxygen:
Vital Signs
Temp Pulse Resp BP Pulse Ox
99.4 F 149 25 136/66 99
05/09/23 08:00 05/09/23 10:30 05/09/23 10:30 05/09/23 10:30 05/09/23 10:30
Intake and Output
05/08/23 05/09/23 05/10/23
06:59 06:59 06:59
Intake Total 3785.0 / 3818.8 360.1 / 360.1
Output Total 650 / 650
Balance 3135.0 / 3168.8 360.1 / 360.1
SaO2 99
Nasal Cannula flow liters per 6
minute
Physical Exam
General: Respiratory Distress (Mild at rest)
HEENT: Normocephalic
Cardiovascular: S1-S2
Respiratory: Clear and Non-Labored Respirations
GI: Soft and Non Distended
Neurology: Awake and Alert
Skin: Warm
Labs/Micro/Reports
Lab Data
05/09/23 01:25
05/09/23 01:25
Microbiology
05/08/23 02:38 Blood/Venous Blood Culture - Preliminary
No Growth in 24 hours- Final report to follow
05/08/23 02:38 Blood/Venous Blood Culture - Preliminary
No Growth in 24 hours- Final report to follow
05/08/23 08:06 Nose Nasal Screen MRSA (PCR) - Final
MRSA not detected - performed by PCR methodology.
--- NOTE | 2023-05-09 11:33 | W.PN.GI.CBS2 ---
Today's Communication / Plan
-
Hgb down to 8.5, possibly dilutional
Still no evidence of active GI bleeding
Follow Hgb
Still no plans for EGD given his respiratory status and lack of evidence of bleeding
Assessment / Plan
-
Summary: 82-year-old male history of dementia presents to the hospital with an unwitnessed fall. While in the ER he was found to have a fever of 102.5 he was tachycardic, respiratory distress with mottled lower extremities, BP of 77/44 and hypoxic
requiring BiPAP support. He was found to have pneumonia and septic shock. We are asked to evaluate for OB positive, brown stool per ER report.
No signs of active bleeding since he is arrived. He has no known NSAID use that we are aware of, although per his MAR record from home he may be on aspirin 325 mg daily. Hemoglobin is currently 10.5 down from 11.9 although on review of prior
records patient's baseline hemoglobin is in the 8-9 range.
Impression:
OB positive Brown stool
Acute hypoxemic respiratory failure due to pneumonia requiring BiPAP
Septic shock
Dementia
Subjective
Subjective
Date of Service: May 09, 2023
No complaints this am. No BMs
Objective
Data Reviewed
Laboratory Data:
Laboratory Results
05/09/23 01:25
05/09/23 01:25
Laboratory Results
PT 18.3 Sec (11.4-14.6) H 05/08/23 08:06
INR 1.54 05/08/23 08:06
APTT 31.6 Sec (23.4-35.0) 05/08/23 08:06
Magnesium 1.7 mg/dl (1.6-2.3) 05/09/23 01:25
Total Bilirubin 0.6 mg/dl (0.2-1.3) 05/09/23 01:25
AST 25 U/L (17-59) 05/09/23 01:25
ALT 14 U/L (0-50) 05/09/23 01:25
Alkaline Phosphatase 84 U/L (38-126) 05/09/23 01:25
Vital Signs and I&O:
Vital Signs
Temp Pulse Resp BP Pulse Ox
99.4 F 135 25 136/66 96
05/09/23 08:00 05/09/23 11:22 05/09/23 11:22 05/09/23 10:30 05/09/23 11:22
I&O
05/08/23 05/09/23 05/10/23
06:59 06:59 06:59
Intake Total 3785.0 / 3818.8 360.1 / 360.1
Output Total 650 / 650
Balance 3135.0 / 3168.8 360.1 / 360.1
Physical Exam
Physical Exam
GI: Soft, Non Distended and Non Tender
--- NOTE | 2023-05-09 11:52 | W.PN.HOSP.TC ---
Today's Communication/Plan
-
wean pressors
continue IVF
wean O2
continue IV Abx
ST eval
Assessment / Plan
Assessment / Plan
Assessment:
Acute hypoxemic respiratory failure due to pneumonia
Bilateral PNA
- possible aspiration etiology; keep NPO And head of bed elevated. Formal speech eval today
- continue Cefepime, day 2. Follow cultures. MRSA neg so Vanc stopped
- weaned off BiPAP to 10L NC
Septic shock
Lactic acidosis
- Lactic acidosis improving, continue IVF
- wean off pressors as able; currently Levophed at 6, will wean to 4
Acute anemia likely dilutional on top of chronic anemia
Dark stools - cleared by GI no evidence of bleeding
- Hb 8.5
- No strong evidence of GI bleed
- GI following; no plan for endoscopic eval at this time
Fall on admission - CT head neg
Essential HTN
Dementia unknown subtype
Hypercholesterolemia
Metastatic prostate cancer on Lupron
DVT ppx: SCDs
Code: full DNR, no heroic measures per family
Total Critical Care Time 33 minutes. I was immediately available to the patient and staff. I personally examined, reviewed labs, diagnostic images/reports, interpretations, treatment plans, discussed patient care with other providers and family
or caregivers (if patient is unable to make decisions), entered orders as appropriate and documented the medical record.
Anticipated Discharge: > 48 hours
Subjective/Interval History
-
Date of Service: May 09, 2023
pressors weaned, O2 down to 10L
more alert, asking for coffee
Objective Data
-
Labs:
Laboratory Results
05/09/23
01:25
WBC 13.6 H
Hgb 8.5 L
Hct 26.3 L
Plt Count 232 D
Sodium 132 L
Potassium 3.5
Chloride 103
Carbon Dioxide 25
BUN 31 H
Creatinine 0.7
Glucose 129 H
Calcium 7.1 L
Total Bilirubin 0.6
AST 25
ALT 14
Alkaline Phosphatase 84
Vital Signs:
Vital Signs
Temp Pulse Resp BP Pulse Ox
99.4 F 135 25 136/66 96
05/09/23 08:00 05/09/23 11:22 05/09/23 11:22 05/09/23 10:30 05/09/23 11:22
I&O
05/08/23 05/09/23 05/10/23
06:59 06:59 06:59
Intake Total 3785.0 / 3818.8 360.1 / 360.1
Output Total 650 / 650
Balance 3135.0 / 3168.8 360.1 / 360.1
Physical Exam
-
General: No Apparent Distress
HEENT: Normocephalic and Atraumatic
Respiratory: Clear to Auscultation and Decreased Breath Sounds
GI: Soft
Genito-urinary: No Costovertebral Tender
Neuro: AO x 3
Psych: Calm
Data Reviewed
-
Critical Care Time (in minutes): 33
Labs: Labs Reviewed by me
--- NOTE | 2023-05-09 11:57 | PTCARENOTE ---
Weaning IV Levophed as BP permits. Speech therapy in -will allow meds crushed in applesauce and ICE Chips only currently. Family at the bedside
--- NOTE | 2023-05-09 12:38 | PTOTSP ---
ST Evaluation
Moderate oral and suspected pharyngeal dysphagia; productive coughing intermittently with PO trials
Pt received awake/alert at the bedside. Oral suctioning thin/clear secretions. Productive coughing at baseline. HOB raised upright for PO trials of single ice chips, thin liquids by tsp and puree. Demo adequate oral access/containment, mild-mod
prolonged bolus manipulation, and suspect posterior pre-spill prior to swallow trigger. There was coughing ~50% of opportunities following thin liquids and single ice chip trials. Puree by tsp occasional double swallow however vocal quality remained
grossly clear.
Recommend
1. Remain short term NPO
2. Allow critical meds crushed into apple sauce or IV
3. Allow single ice chips sparingly with supervision per AHRP protocol
4. WALL COVERING INSTALLER following; reassess swallow at bedside for potential diet release v. need for objective testing
--- NOTE | 2023-05-09 13:10 | PTCARENOTE ---
Family in with pt. Dozes briefly but then is easily awake. Family brought dentures in but pt does not want to wear so speech remains overall slurred/garbled with some clearer words. Denies pain. Suctioned oropharyngeally for whitish secretions. O2
decreased to 8L midflow. Monitor with rates of 135-170- when down in the 130's looks like SR PAC's but when up in the 160-170's more AFib appearing. IV Levophed weaned off at 1300. Given single ice chips per Speech therapy along with oral care.
Voiding yellow urine via condom cath. Turned and repositioned. Call suárez in reach. Watching the [employer]
--- NOTE | 2023-05-09 14:00 | PTCARENOTE ---
Watching TV- took O2 off to blow his nose and forgot to put it back on- sats dipped to 89%. Placed back on and up to 95%- currently on 8L midflow
[2023-05-09] MEDS: LOPRESSOR 5 MG IV ×2 (15:51→23:22)
--- NOTE | 2023-05-09 15:55 | PTCARENOTE ---
Dr. Bello updated on continued tachycardia with HR 140-170's. Lopressor 5 mg IV given at 1551 with HR down to 118-130's STach with PAC's but at times looks like AFib. VS as documented. Temp 100.9-101- Ofermiv 1000 mg IV given. Pt still with moist
cough. Taking 1 ice chip a time. Turned and repositioned. Skin and mouth care given. Med reconcilliation done after daughter provided med list.
--- NOTE | 2023-05-09 16:46 | W.PN.UPDATE ---
Update Note
Progress Note Update
Levophed has been weaned off.
Remains tachycardic, sinus rhythm with PACs.
Relatively asymptomatic from
Start metoprolol IV every 6 hours as needed.
Restart usual home dose of metoprolol tomorrow.
--- NOTE | 2023-05-09 18:15 | PTCARENOTE ---
Remains resting. Watching TV. HR overall 120-140's Afib looking since Lopressor. Intermittently suctioned orally-oropharyngeally for thick whitish/pale yellow secretions. Needs reorientation/reminders at times but overall is appropriate.
--- NOTE | 2023-05-09 20:00 | PTCARENOTE ---
transmission engineer, pt oriented to self and place, disoriented to time and forgetful at times, able to be reoriented. AFib HR 120-140. R PICC WNL- IVF infusing per work list. Sat 94% on 7L MFNC, +productive cough. condom cath in place. bed alarm on, call
suárez with pt.
[2023-05-10] VITALS (23 sets, daily range): BP systolic 102–155; BP diastolic 54–95; BMI 22.1
--- NOTE | 2023-05-10 01:15 | PTCARENOTE ---
pt agitated, removed condom cath twice this shift, frequently removing pulse ox, yelling out. attempts made to reorient.
[2023-05-10] MEDS: ATIVAN 0.5 MG IV (01:42)
[2023-05-10] MEDS: NSS (PRESERVATIVE FREE) 0.25 ML IV (01:43)
[2023-05-10] MEDS: MAXIPIME 2000 MG IV (01:43)
[2023-05-10] MEDS: STERILE WATER FOR INJECTION 10 ML IV ×4 (01:43→22:18)
[2023-05-10 05:06] LABS: Hematocrit 24.2 % (39.0-52.0); Hemoglobin 7.8 g/dL (13.0-18.0); Mean Corp Hgb Conc. 32.2 g/dL (33.0-37.0); Mean Corpuscular Hgb 27.6 pg (27.0-31.0); Mean Corpuscular Volume 85.5 fL (80.0-94.0); Mean Platelet Volume 8.9 fL (7.4-10.4); Platelet Count 176 10^3/uL (130-400); Red Blood Cell Count 2.83 10^6/uL (4.70-6.10); Red Cell Dist. Width 16.6 % (11.5-14.5); White Blood Cell Count 8.3 10^3/uL (4.8-10.8)
[2023-05-10] MEDS: LOPRESSOR 5 MG IV ×4 (05:17→23:50)
[2023-05-10 05:30] LABS: Blood Urea Nitrogen 16 mg/dl (9-20); Calcium 7.4 mg/dl (8.4-10.2); Carbon Dioxide 24 mmol/L (22-30); Chloride 109 mmol/L (98-107); Estimated Creatinine Clearance 82 ml/min; Glucose 63 mg/dl (70-99); Sodium 132 mmol/L (135-145); eGFR > 60.00
[2023-05-10 05:36] LABS: Potassium 3.5 mmol/L (3.5-5.1)
[2023-05-10] MEDS: DEXTROSE 50% SYRINGE 12.5 GRAMS IV (05:59)
--- NOTE | 2023-05-10 06:00 | PTCARENOTE ---
BG 63 on am labs, 1/2 amp D50
[2023-05-10] MEDS: KCL 100 IV (06:15)
[2023-05-10 06:27] LABS: Glucose - Point of Care 130 mg/dl (70-99)
--- NOTE | 2023-05-10 07:41 | W.PN.INTV ---
Today's Communication / Plan
Recommendations
Wean BiPAP
Wean oxygen
Aspiration precautions
Antibiotics
Comfort a priority
Assessment
-
82-year-old man with history of dementia, hypertension, who is here for increased work of breathing, hypotension, bilateral infiltrates on chest x-ray. Admitted after sustaining a fall. Due to increased work of breathing started on BiPAP,
hypotensive. Critical care was consulted for evaluation and treatment.
-
Acute hypoxemic respiratory failure due to pneumonia
Requiring noninvasive mechanical ventilation
Bilateral pneumonia: Cannot rule out aspiration
Chest x-ray 05/08/2023: Left lower lobe infiltrate. To my view right lower lobe perihilar infiltrate. Multiple sclerotic bone lesions.
Septic shock
Lactic acidosis up to 4.2
Hyperglycemia
? Dark stools-cannot rule out GI bleed.
Anemia, unclear chronicity.
Status post fall on admission: CT head negative. Moderate diffuse cortical and cerebellar atrophy.
Conditions present prior admission:
Hypertension
Dementia
Lives with family
Hypercholesterolemia
Lupron is listed as a medication: Likely has metastatic prostate cancer given bone metastatic disease on x-rays.
-
Plan
Critically ill on BiPAP with increased work of breathing
Wean BiPAP 18/8 cm
Continue supplemental oxygen
Nebulizers as needed
DNR status noted
Patient not to be intubated
Aspiration precautions
Speech therapy following
Check cultures
Broad-spectrum antibiotics
Lactic acid has cleared
Norepinephrine as needed-attempt to wean
Follow hemoglobin
Transfuse if needed
GI has no plans for endoscopy
DVT prophylaxis-on sequentials
GI prophylaxis-on pantoprazole
Dr. Bello discussed with family at the bedside 05/08/2023 and 05/09/2023: Again, DNR confirmed. No CPR or intubation. No heroic interventions. No extensive procedures.
If patient worsens then family okay to with keeping comfortable.
05/09/2023: Clinically improved but still critically ill.
If able to be weaned off pressors then transfer out of ICU-call pulmonary if respiratory issues arise
Critical care statement: A total of 40 minutes of critical care time was provided for this patient today. This includes management of unstable vital signs, evaluation of the patient at bedside, reviewing the patient's pertinent medical records
including radiographs, microbiology, laboratory evaluations, and discussion with primary team, consultants, pharmacy, nutrition, physical therapy, case management, charge nurse, critical care nursing, and respiratory therapy.
Subjective Dataa
Subjective Data
Date of Service:
Date of Service: May 10, 2023
Chief Complaint: Hogshead Salvage Follow Up (Septic shock/acute respiratory failure requiring noninvasive mechanical ventilation) and Pulmonary Follow Up
Subjective:
Sedated overnight, nonverbal, nursing reports intermittent agitation, no shortness of breath or complaints of pain
Review of Systems
General: Other (Per HPI)
Objective Data
Data Reviewed
Vital Signs / I&O / Oxygen:
Vital Signs
Temp Pulse Resp BP Pulse Ox
99 F 130 21 120/65 95
05/10/23 07:26 05/10/23 06:30 05/10/23 06:30 05/10/23 06:00 05/10/23 05:45
Intake and Output
05/09/23 05/10/23 05/11/23
06:59 06:59 06:59
Intake Total 3785.0 / 3818.8 2182.6 / 2182.6
Output Total 650 / 650 750 / 750
Balance 3135.0 / 3168.8 1432.6 / 1432.6
SaO2 95
Nasal Cannula flow liters per 6
minute
Physical Exam
General: Respiratory Distress (Mild at rest) and Comfortable
HEENT: Normocephalic and Anicteric
Cardiovascular: Regular Rhythm
Respiratory: Clear, Wheeze (n) and Non-Labored Respirations
GI: Soft and Non Distended
Neurology: Awake, Alert and No Motor Deficits
Skin: Warm, Good Color, Cyanosis (n) and Jaundice (n)
Labs/Micro/Reports
Lab Data
05/10/23 04:57
05/10/23 04:57
Microbiology
05/08/23 02:38 Blood/Venous Blood Culture - Preliminary
No Growth in 48 hours- Final report to follow
05/08/23 02:38 Blood/Venous Blood Culture - Preliminary
No Growth in 48 hours- Final report to follow
05/08/23 05:22 Urine Urine Culture - Final
NO GROWTH
05/08/23 08:06 Nose Nasal Screen MRSA (PCR) - Final
MRSA not detected - performed by PCR methodology.
--- NOTE | 2023-05-10 08:30 | PTCARENOTE ---
Assumed care of patient. Pt rec'd sleeping but easily arousable. Garbled speech but able to let needs be known. Denies any pain. Knows name and place...confused to time. Weak gag noted w/ oral care. S1 S2 irregular w/ afib on monitor. DP/PT's
confirmed w/ doppler. On 7L MFNC...sats 98%. Encouraged coughing and deep breathing. Weak moist NPC noted. Abdomen round...+BS. #25 condom cath draining radha urine to bag. Skin pale in color. Heels elevated on pillow. Protective sacral
foam. 18P LAC capped..flushed. Right DL PICC w/ LR @ 80ml/hr. VS documented. Call suárez within reach. Will continue to monitor.
[2023-05-10] MEDS: PROTONIX IV 40 MG IV (08:39)
[2023-05-10] MEDS: NSS (PRESERVATIVE FREE) 10 ML IV (08:39)
--- NOTE | 2023-05-10 08:46 | W.PN.GI.CBS2 ---
Today's Communication / Plan
-
Hgb down slightly further to 7.8 but no evidence of GI bleeding
Would avoid endoscopic procedures unless signs of GI bleeding
Transfuse as needed
Will sign off. Please call back if needed
Assessment / Plan
-
Summary: 82-year-old male history of dementia presents to the hospital with an unwitnessed fall. While in the ER he was found to have a fever of 102.5 he was tachycardic, respiratory distress with mottled lower extremities, BP of 77/44 and hypoxic
requiring BiPAP support. He was found to have pneumonia and septic shock. We are asked to evaluate for OB positive, brown stool per ER report.
No signs of active bleeding since he is arrived. He has no known NSAID use that we are aware of, although per his MAR record from home he may be on aspirin 325 mg daily. Hemoglobin is currently 10.5 down from 11.9 although on review of prior
records patient's baseline hemoglobin is in the 8-9 range.
Impression:
OB positive Brown stool
Acute hypoxemic respiratory failure due to pneumonia requiring BiPAP
Septic shock
Dementia
Subjective
Subjective
Date of Service: May 10, 2023
Brown BM 05/07, none yesterday
Objective
Data Reviewed
Laboratory Data:
Laboratory Results
05/10/23 04:57
05/10/23 04:57
Laboratory Results
PT 18.3 Sec (11.4-14.6) H 05/08/23 08:06
INR 1.54 05/08/23 08:06
APTT 31.6 Sec (23.4-35.0) 05/08/23 08:06
Magnesium 1.7 mg/dl (1.6-2.3) 05/09/23 01:25
Total Bilirubin 0.6 mg/dl (0.2-1.3) 05/09/23 01:25
AST 25 U/L (17-59) 05/09/23 01:25
ALT 14 U/L (0-50) 05/09/23 01:25
Alkaline Phosphatase 84 U/L (38-126) 05/09/23 01:25
Vital Signs and I&O:
Vital Signs
Temp Pulse Resp BP Pulse Ox
99 F 130 21 120/65 95
05/10/23 07:26 05/10/23 06:30 05/10/23 06:30 05/10/23 06:00 05/10/23 05:45
I&O
05/09/23 05/10/23 05/11/23
06:59 06:59 06:59
Intake Total 3785.0 / 3818.8 2182.6 / 2182.6
Output Total 650 / 650 750 / 750
Balance 3135.0 / 3168.8 1432.6 / 1432.6
Physical Exam
Physical Exam
GI: Soft, Non Distended and Non Tender
--- NOTE | 2023-05-10 09:10 | PTOTSP ---
Speech Language Pathology
Pt seen for dysphagia tx. Sleeping upon arrival with baseline RR at 42. Wet coughing noted upon wakening. Dysarthria noted with poor intelligibility. When asked if he has trouble swallowing at home, pt endorsed coughing with solids and liquids
for 1 year. Unsure if this is accurate. P.O. trials of puree and thin liquids provided. Prolonged bolus formation and A-P transit noted, with swallow initiated 20 seconds after onset of bolus manipulation. Despite swallow initiation,
approximately half of bolus noted in oral cavity post swallow with need for oral suctioning by MOTORCYCLE DELIVERER. After P.O. trials, wet coughing noted. Increase in WOB and RR also noted post P.O. trials.
Recommend:
(1) Strict NPO
(2) Oral care 4x/day with suctioning as needed
(3) Hold on Aspiration Risk Hydration Protocol (ARHP) at this time
(4) Non-oral meds
(5) MOTORCYCLE DELIVERER to continue to follow
--- NOTE | 2023-05-10 10:23 | W.PN.HOSP.TC ---
Today's Communication/Plan
-
CW ABX
CW IV fluids
CW SHIRT MAKER
Assessment / Plan
Assessment / Plan
Assessment:
Acute hypoxemic respiratory failure due to pneumonia
Bilateral PNA
- possible aspiration etiology; keep NPO And head of bed elevated. Formal speech eval today
- continue Cefepime, day 3. Follow cultures. MRSA neg so Vanc stopped
- weaned off BiPAP to 10L NC
- Pt is not cooperative to wear oxygen
Septic shock
Lactic acidosis
- Lactic acidosis normalized. continue IVF till taking PO
- weaned off pressors
Acute anemia likely dilutional on top of chronic anemia
Dark stools - cleared by GI no evidence of bleeding
- Hb 7.8
- No evidence of active GI bleed
- GI sigbed off today; no plan for endoscopic eval at this time
Fall on admission - CT head neg
Essential HTN
Dementia unknown subtype
Hypercholesterolemia
Metastatic prostate cancer on Lupron
DVT ppx: SCDs
Code: full DNR, no heroic measures per family
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
DW daughter
Patient mentioned about dying when he gets frustrated even at home.
He was in [facility] in November or so and went to rehab.
Patient has ambulatory dysfunction had many falls at home-she mentions - 12 falls in the last month.
He also having issues with memory lately, also disorientation and hallucination. No given diagnosis of dementia. 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 He lives with the daughter and
ambulates with a walker but the imbalance are likely been worse.
He was advised to modified diet after his pneumonia last year.
Total time spent on today's encounter was 52 minutes which included time spent in counseling the patient/family regarding diagnosis and treatment plan as listed above, goals of care, and symptom management. Case was discussed with nursing staff,
specialists, and care coordinators/case management. All labs and imaging personally reviewed by me. Remainder the time spent in detailed review of previous records, lab data, imaging, and other medical provider documentation.
Anticipated Discharge: > 48 hours
Subjective/Interval History
-
Date of Service: May 10, 2023
Patient awake but with garbled speech.
Patient is slightly agitated, pulled his nasal cannula not really allowing for it to be placed back. Is also not cooperative with examination.
' I am not going to put this oxygen on' and when told he could , he replied back ' I am okay to but I am not going to put this oxygen'
Oriented to place and person.
Objective Data
-
Labs:
Laboratory Results
05/10/23
04:57
WBC 8.3
Hgb 7.8 L
Hct 24.2 L
Plt Count 176 D
Sodium 132 L
Potassium 3.5
Chloride 109 H
Carbon Dioxide 24
BUN 16
Creatinine 0.5 L
Glucose 63 L
Calcium 7.4 L
Vital Signs:
Vital Signs
Temp Pulse Resp BP Pulse Ox
99 F 152 25 140/69 88
05/10/23 07:26 05/10/23 09:30 05/10/23 09:30 05/10/23 09:00 05/10/23 09:30
I&O
05/09/23 05/10/23 05/11/23
06:59 06:59 06:59
Intake Total 3785.0 / 3818.8 2182.6 / 2262.6 320 / 320
Output Total 650 / 650 750 / 750
Balance 3135.0 / 3168.8 1432.6 / 1512.6 320 / 320
Review of Systems
-
Unable to obtain full review of systems at this time due to: Other (not cooperative)
Physical Exam
-
General: No Apparent Distress
HEENT: Moist Mucous Membranes
Respiratory: Non Labored Respirations; Negative Accessory Resp Muscle Use
Neuro: Awake and Alert; Negative Tremors
Psych: Confused and Agitated; Negative Calm
Data Reviewed
-
Labs: Labs Reviewed by me
[2023-05-10] MEDS: MAXIPIME 1000 MG IV ×3 (10:25→22:18)
[2023-05-10] MEDS: D5LR 1000 IV ×2 (10:32→23:24)
[2023-05-10] MEDS: LR IV (11:09)
--- NOTE | 2023-05-10 11:45 | PTCARENOTE ---
Pt w/ periods of confusion and agitation. Pulling off oxygen and cardiac monitoring...periods of anger....wants 'to go home and '. Able to place pt back on monitoring. and aware. to call dtr and update. No major
changes in physical assessment. Will continue to monitor closely.
[2023-05-10 11:49] LABS: Glucose - Point of Care 74 mg/dl (70-99)
--- NOTE | 2023-05-10 15:44 | CM ---
CM following re: discharge planning.
Discussed in Rounds, reviewed pt's chart, met with pt.
Pt is an 82 year old male, admitted with primary dx of Acute hypoxemic respiratory failure due to pneumonia.
Pt is not a great historian, information obtained from the family and CM left a message to pt's daughter. Pt lives with daughter in a 2SH, 2 steps to enter, has 5 children. Per record, pt has been falling at home.
PT and OT will evaluate the pt when clinically appropriate.
CM will obtain more information regarding pt's psychosocial background and prior level of functioning from pt's daughter.
D/C plan: uncertain at this tme and will depend on pt's progress
CM will follow with discharge plan updates as hospitalization progresses
--- NOTE | 2023-05-10 16:00 | PTCARENOTE ---
Pt remains on 8L MFNC...sats 96%. Weak cough...weak gag...frequent oral suctioning for thick mills secretions. Tachypnea noted... aware. PRN morphine for SOB. Bed alarm on. Will continue to monitor closely.
[2023-05-10 18:07] LABS: Glucose - Point of Care 84 mg/dl (70-99)
--- NOTE | 2023-05-10 20:10 | PTCARENOTE ---
Received patient in bed at change of shift. Garbled speech, difficult to understand. Afib, 120s-170s, prn lopressor given. Weak pedal pulses bilaterally, palpable radial pulses bilaterally. SCDs on. BP stable, 140s-150s/50s-60s. +2 edema on
bilateral upper extremities. On 8 liters midflow, saturating 96%. Lung sounds coarse and diminished throughout. Thick, mills secretions suctioned, tachypneic to the 40s. Positive bowel sounds, no BM yet this shift. #25 condom cath intact, draining
radha urine. Skin pale, right thigh bruise, left elbow skin tear, protective foam on sacrum, heels elevated. PIV patent, WNL, right DL PICC patent, WNL, D5 LR infusing at 80 ml/hr. Call suárez within reach, safe environment maintained.
[2023-05-10] MEDS: MORPHINE SULFATE 1 MG IV (22:17)
[2023-05-10 23:40] LABS: Glucose - Point of Care 95 mg/dl (70-99)
--- NOTE | 2023-05-10 23:40 | PTCARENOTE ---
Patient consistently tachypneic to the 40s/50s, heart rate going up to 180s. PRN lopressor and morphine given. NETWORK PROFESSIONAL notified, to bedside, switched to HFNC 60 liters, 100%. Nasally and orally suctioned by NETWORK PROFESSIONAL, thick mills secretions.
[2023-05-11] VITALS (9 sets, daily range): BP systolic 76–138; BP diastolic 32–114; BMI 22.1
--- NOTE | 2023-05-11 00:13 | W.PN.UPDATE ---
Update Note
Progress Note Update
Patient clinical declining RR 40 to 50 on high flow oxygen and marginally responsive. Discuss situation with Bruna Magdaleno (daughter) and decision made to make patient comfort care.�
�
[2023-05-11] MEDS: MORPHINE SULFATE 2 MG IV ×7 (00:45→04:20)
[2023-05-11] MEDS: MORPHINE 100 IV ×2 (02:21→17:25)
--- NOTE | 2023-05-11 02:31 | CHAP ---
Called for end of life prayers. [place] that Mr. Gutierrez goes by 'Suhas.' Prayers shared, prayer blanket given, grief support provided for daughter, Poonam, and other friends at bedside.
[2023-05-11] MEDS: ROBINUL 0.200000000000000011 MG IV ×2 (03:01→08:19)
[2023-05-11] MEDS: MAXIPIME 1000 MG IV (03:47)
[2023-05-11] MEDS: STERILE WATER FOR INJECTION 10 ML IV (03:48)
--- NOTE | 2023-05-11 03:58 | PTCARENOTE ---
Family at bedside. Second Cutter called, prayers done and prayer blanket given. Emotional and physical support provided. Morphine gtt on, following end of life protocol.
[2023-05-11] MEDS: MORPHINE SULFATE 4 MG IV ×2 (05:07→05:34)
[2023-05-11] MEDS: MORPHINE SULFATE 6 MG IV ×4 (06:11→10:01)
--- NOTE | 2023-05-11 07:39 | W.PN.INTV ---
Today's Communication / Plan
Recommendations
Comfort care
Morphine as needed
Discontinue other medications
Biostatistician will sign off
Assessment
-
82-year-old man with history of dementia, hypertension, who is here for increased work of breathing, hypotension, bilateral infiltrates on chest x-ray. Admitted after sustaining a fall. Due to increased work of breathing started on BiPAP,
hypotensive. Critical care was consulted for evaluation and treatment.
-
Acute hypoxemic respiratory failure due to pneumonia
Requiring noninvasive mechanical ventilation
Bilateral pneumonia: Cannot rule out aspiration
Chest x-ray 05/08/2023: Left lower lobe infiltrate. To my view right lower lobe perihilar infiltrate. Multiple sclerotic bone lesions.
Septic shock
Lactic acidosis up to 4.2
Hyperglycemia
? Dark stools-cannot rule out GI bleed.
Anemia, unclear chronicity.
Status post fall on admission: CT head negative. Moderate diffuse cortical and cerebellar atrophy.
Conditions present prior admission:
Hypertension
Dementia
Lives with family
Hypercholesterolemia
Lupron is listed as a medication: Likely has metastatic prostate cancer given bone metastatic disease on x-rays.
-
Plan
Events noted-deteriorated and patient was changed to comfort care
Supplemental oxygen and BiPAP if needed
Nebulizers if needed
Aspiration precautions
Norepinephrine as needed
Antibiotics
Follow hemoglobin
Transfuse if needed
Note gastroenterology has no plans for endoscopy
DVT prophylaxis-on sequentials
GI prophylaxis-on pantoprazole
Dr. Bello discussed with family at the bedside 05/08/2023 and 05/09/2023: Again, DNR confirmed. No CPR or intubation. No heroic interventions. No extensive procedures.
If patient worsens then family okay to with keeping comfortable.
05/09/2023: Clinically improved but still critically ill.
Patient now made comfort care-hoop maker machine will sign off-please call pulmonary if respiratory issues arise
Reviewed the patient's pertinent medical records including radiographs, microbiology, laboratory evaluations, and discussion with primary team, consultants, pharmacy, nutrition, physical therapy, case management, charge nurse, critical care
nursing, and respiratory therapy.
Subjective Dataa
Subjective Data
Date of Service:
Date of Service: May 11, 2023
Chief Complaint: Biostatistician Follow Up (Septic shock/acute respiratory failure requiring noninvasive mechanical ventilation) and Pulmonary Follow Up
Subjective:
Events noted-now comfort care
Review of Systems
General: Other (Per HPI)
Objective Data
Data Reviewed
Vital Signs / I&O / Oxygen:
Vital Signs
Temp Pulse Resp BP Pulse Ox
98.4 F 159 9 104/56 100
05/11/23 03:44 05/11/23 05:15 05/11/23 05:15 05/11/23 05:13 05/11/23 05:15
Intake and Output
05/10/23 05/11/23 05/12/23
06:59 06:59 06:59
Intake Total 2182.6 / 2262.6 1936 / 1936
Output Total 750 / 750 875 / 875
Balance 1432.6 / 1512.6 1061 / 1061
SaO2 100
Nasal Cannula flow liters per 60
minute
Physical Exam
General: Respiratory Distress (Mild at rest) and Comfortable
HEENT: Normocephalic and Anicteric
Cardiovascular: Regular Rhythm
Respiratory: Clear, Wheeze (n) and Non-Labored Respirations
GI: Soft and Non Distended
Neurology: No Motor Deficits and Lethargic
Skin: Warm, Good Color, Cyanosis (n) and Jaundice (n)
Labs/Micro/Reports
Lab Data
05/11/23 06:00
05/11/23 06:00
Microbiology
05/08/23 02:38 Blood/Venous Blood Culture - Preliminary
No Growth in 72 hours- Final report to follow
05/08/23 02:38 Blood/Venous Blood Culture - Preliminary
No Growth in 72 hours- Final report to follow
05/08/23 05:22 Urine Urine Culture - Final
NO GROWTH
05/08/23 08:06 Nose Nasal Screen MRSA (PCR) - Final
MRSA not detected - performed by PCR methodology.
--- NOTE | 2023-05-11 08:00 | PTCARENOTE ---
Assumed care of patient at 0645.
Patient remains on Morphine drip for comfort/end of life care. Addressing dyspnea with PRN pushes of IV Morphine as ordered. Currently running at 6mg/mL an hour. Patient is unresponsive to verbal stimuli and is agonal breathing. Family remains at
bedside. Provided emotional and therapeutic support.
Full assessment deferred in favor of patient's comfort at this time. Family would rather patient not be repositioned at this time because he appears to be comfortable.
[2023-05-11] MEDS: NSS (PRESERVATIVE FREE) IV (08:17)
--- NOTE | 2023-05-11 08:30 | W.PN.HOSP.TC ---
Today's Communication/Plan
-
Continue with comfort measures
Assessment / Plan
Assessment / Plan
Assessment:
Acute hypoxemic respiratory failure due to pneumonia
Bilateral PNA
- possible aspiration etiology
-Respiratory distress got worse last night
-Fevers noted yesterday
-Tachycardic seems to be in A-fib on monitor
Septic shock
Lactic acidosis
- Lactic acidosis normalized.
- weaned off pressors
Acute anemia likely dilutional on top of chronic anemia
Dark stools
- Hb 7.8
- No evidence of active GI bleed
- GI sigbed off today; no plan for endoscopic eval at this time
Fall on admission - CT head neg
Essential HTN
Dementia unknown subtype
Hypercholesterolemia
Metastatic prostate cancer on Lupron
DVT ppx: SCDs
Code: full DNR, no heroic measures per family
Patient now on comfort measures.
Siblings at bedside ,finds him comfortable.
Continue with current comfort measures. Patient has prolonged apnea and that seems to be imminent.
Left message to the daughter on her voicemail
Total time spent on today's encounter was 52 minutes which included time spent in counseling the patient/family regarding diagnosis and treatment plan as listed above, goals of care, and symptom management. Case was discussed with nursing staff,
specialists, and care coordinators/case management. All labs and imaging personally reviewed by me. Remainder the time spent in detailed review of previous records, lab data, imaging, and other medical provider documentation.
Anticipated Discharge: Within 24 hours
Subjective/Interval History
-
Date of Service: May 11, 2023
Last night events noted. Patient now made comfortable. On medication for comfort including morphine
Objective Data
-
Labs:
Laboratory Results
05/11/23
06:00
WBC Cancelled
Hgb Cancelled
Hct Cancelled
Plt Count Cancelled
Sodium Cancelled
Potassium Cancelled
Chloride Cancelled
Carbon Dioxide Cancelled
BUN Cancelled
Creatinine Cancelled
Glucose Cancelled
Calcium Cancelled
Vital Signs:
Vital Signs
Temp Pulse Resp BP Pulse Ox
98.4 F 159 9 104/56 100
05/11/23 03:44 05/11/23 05:15 05/11/23 05:15 05/11/23 05:13 05/11/23 05:15
I&O
05/10/23 05/11/23 05/12/23
06:59 06:59 06:59
Intake Total 2182.6 / 2262.6 1935 / 2021 172 / 172
Output Total 750 / 750 875 / 875
Balance 1432.6 / 1512.6 1061 / 1147 172 / 172
Review of Systems
-
Unable to obtain full review of systems at this time due to: Other (Unresponsive)
Physical Exam
-
General: No Apparent Distress and Comfortable
Respiratory: Non Labored Respirations; Negative Accessory Resp Muscle Use
Neuro: Negative Awake or Alert
Psych: Calm
--- NOTE | 2023-05-11 08:57 | PN.CDI ---
CDI
- -
CDI:
Physician Documentation Request
Admit Date: 05/08/23 05:17
Dear Doctor Basilio,
Please review the following and provide your response in the progress notes.
Clinical Indicators:
- Patient admit for acute hypoxic respiratory failure due to pneumonia
- Sodium levels as follows:
Laboratory Tests
05/08/23 05/09/23 05/10/23
12:29 01:25 04:57
Sodium 134 L 132 L 132 L
Please provide a diagnosis for the above lab values that were monitored and treatment rendered:
Hyponatremia
Clinically insignificant abnormal lab value
Other
Use of terms such as suspected, likely, concern for, or probable (associated with a specific diagnosis that is being evaluated, monitored, or treated as if it exists) are acceptable and can be coded in the inpatient setting, when documented at the
time of discharge.
Thank you,
Edgard Lee RN
CDI Specialist
Please use your independent medical judgment in providing your response.
--- NOTE | 2023-05-11 09:04 | PN.CDI ---
CDI
- -
CDI:
Physician Documentation Request
Admit Date: 05/08/23 05:17
Dear Doctor Basilio,
Please review the following and provide your response in the progress notes.
Clinical Indicators:
The diagnosis of acute encephalopathy was documented on 05/07 H&P but is not consistently noted in subsequent documentation.
- 05/07 H&P 'Unwitnessed Fall 2/2 associated acute encephalopathy due to sepsis and hypoxia - He becomes more alert and responsive on BiPAP during the ER course'
Please clarify the following:
____ - Acute metabolic encephalopathy was present on admission and is now resolved.
____ - Acute metabolic encephalopathy was present on admission and is still being monitored, evaluated or treated
____ - Acute metabolic encephalopathy was ruled out
____ - Acute metabolic encephalopathy is still a likely, suspected, probable diagnosis
____ - Other
Use of terms such as suspected, likely, concern for, or probable (associated with a specific diagnosis that is being evaluated, monitored, or treated as if it exists) are acceptable and can be coded in the inpatient setting, when documented at the
time of discharge.
Thank you,
Edgard Lee RN
CDI Specialist
Please use your independent medical judgment in providing your response.
--- NOTE | 2023-05-11 09:33 | PN.CDI ---
CDI
- -
CDI:
Physician Documentation Request
Admit Date: 05/08/23 05:17
Dear Doctor Basilio,
Please review the following and provide your response in the progress notes.
Clinical Indicators:
- 05/10 PN '
- 05/09 RN notes 'Pt w/ periods of confusion and agitation. Pulling off oxygen and cardiac monitoring'
- 'pt agitated, removed condom cath twice this shift, frequently removing pulse ox, yelling out'
Based on the above, could you please clarify if any of the following, is the most likely etiology of the confusion/altered mental status.
Dementia with agitation
Dementia with anxiety
Baseline Dementia only
Other
Use of terms such as suspected, likely, concern for, or probable (associated with a specific diagnosis that is being evaluated, monitored, or treated as if it exists) are acceptable and can be coded in the inpatient setting, when documented at the
time of discharge.
Thank you,
Edgard Lee RN
CDI Specialist
Please use your independent medical judgment in providing your response.
[2023-05-11] MEDS: STERILE WATER FOR INJECTION IV (11:02)
--- NOTE | 2023-05-11 13:19 | CM ---
CM following re:discharge planning.
Discussed in Rounds, reviewed pt's chart. Pt's family at bedside.
Per Rounds meeting, pt is comfort care.
CM is available for emotional support.
--- NOTE | 2023-05-11 16:54 | PTCARENOTE ---
recd family visiting, oral care, turned and positioned for comfort, supported with pillows. plan and goals reviewed with family. skin warm and dry. received on 15 l midflow, lowered slowly to 8 l/hr, tolerated. morphine continues 6 mg/hr. did
not require additional bolus with turning.
--- NOTE | 2023-05-11 20:39 | W.PN.DEATH ---
Pronouncement of
-
Called to see patient to pronounce.
No spontaneous heart tones or respirations noted.
Patient not responsive to verbal stimuli.
Patient is pronounced .
Time of : 20:29
Date of : 05/11/23
Cause of : Acute hypoxemic respiratory failure due pneumonia
Family Notified: Yes
--- NOTE | 2023-05-11 21:54 | PTCARENOTE ---
family was sitting at bedside when pt . PRISCILA Huertas pronounced pt at 2028. after family left [facility] called, post mortem care performed, IV sites removed, and belongings sent w/ pt.
--- NOTE | 2023-05-12 08:01 | W.DCSUMMARY ---
Discharge Summary
Discharge Data
Date of Admission: 05/08/23
Date of Discharge: 05/11/23
-
Pending Results: No
Hospital Course
Brief discharge summary:
82-year-old gentleman living at home with the daughter and who has dementia and metastatic prostate cancer on Lupron presented with acute hypoxic respiratory failure secondary to bilateral pneumonia. Suspicion was that this was aspiration. He
also had septic shock associated with that. As respiratory status got worse and he was becoming more hypoxic , the goals of care were discussed with family and comfort was the goal and patient was transitioned into comfort care and at
20:29 on 05/11/2023 peacefully.
Discharge Plan
-
Patient Disposition:
Date/Time
Date/Time: 05/11/23 20:29
Discharge Date and Time
Discharge Date/Time: 05/11/23 20:29
== END 2023-05-11 20:29 | disposition expired | DRG 871 ==
LOC: ICU 05:17
PROVIDERS: Emergency Medicine; Internal Medicine; Nurse Practitioner Primary Care; ADMITTING PHYSICIAN Internal Medicine; ATTENDING PHYSICIAN Internal Medicine; CONSULT PHYSICIAN Internal Medicine Critical Care Medicine; CONSULT PHYSICIAN Specialist; EMERGENCY PHYSICIAN Emergency Medicine
PROC: 02HV33Z Insertion of Infusion Device into Superior Vena Cava, Percutaneous Approach (ICD-10-PCS; 2023-05-08)
PROC: 5A09357 Assistance with Respiratory Ventilation, Less than 24 Consecutive Hours, Continuous Positive Airway Pressure (ICD-10-PCS; 2023-05-08)
PROC: 5A0935A Assistance with Respiratory Ventilation, Less than 24 Consecutive Hours, High Flow/Velocity Cannula (ICD-10-PCS; 2023-05-11)
DX: A41.9 Sepsis, unspecified organism (principal); J18.9 Pneumonia, unspecified organism; J96.01 Acute respiratory failure with hypoxia; R65.21 Severe sepsis with septic shock; E87.20 Acidosis, unspecified; C79.51 Secondary malignant neoplasm of bone; W19.XXXA Unspecified fall, initial encounter; Y93.9 Activity, unspecified; Z51.5 Encounter for palliative care; Y92.9 Unspecified place or not applicable; R73.9 Hyperglycemia, unspecified; F03.90 Unspecified dementia, unspecified severity, without behavioral disturbance, psychotic disturbance, mood disturbance, and anxiety; E78.00 Pure hypercholesterolemia, unspecified; I10 Essential (primary) hypertension; D64.9 Anemia, unspecified; R19.5 Other fecal abnormalities; C61 Malignant neoplasm of prostate; M19.90 Unspecified osteoarthritis, unspecified site; Z66 Do not resuscitate; Z79.82 Long term (current) use of aspirin; Z11.52 Encounter for screening for COVID-19; Z87.820 Personal history of traumatic brain injury; Z79.818 Long term (current) use of other agents affecting estrogen receptors and estrogen levels
CPT/HCPCS: 70450; 71045; 80048; 80053; 81003; 81015; 82550; 82962; 83605; 83735; 83880; 84145; 85014; 85018; 85025; 85027; 85610; 85730; 86850; 86900; 86901; 87040; 87086; 87641; 87811; 92526; 92610; 93005; 94660; 96365; 96375; 99291